=== PATIENT | female | born 1975 | race Caucasian/White ===

== ENCOUNTER 2020-04-03 15:12 | Outpatient (CLI) | payer BC, SELFPAY ==
--- NOTE | ~2020-04-03 | MM_ITS ---
EXAMINATION: MM screening manuel BI w mary HISTORY: Screening TECHNIQUE: Craniocaudal and mediolateral oblique 3-D tomosynthesis images were obtained and synthetic 2-D images were generated. CAD analysis was submitted and interpreted. COMPARISON: No prior mammogram is available for comparison at this institution. BREAST PARENCHYMAL COMPOSITION: The breasts are heterogeneously dense, which may obscure small masses . FINDINGS: There are bilateral breast masses including a 2.6 cm mass in the upper central aspect of th e right breast and a 1.3 cm mass in the upper outer quadrant of the left breast, middle third. There are no suspicious calcifications or architectural distortion. IMPRESSION: 1. Bilateral breast masses. 2. Additional mammographic views and possible breast ultrasound are recommended. BI-RADS Category 0: Incomplete: Needs additional imaging evaluation. Reviewed, dictated and finalized at location A. IMPRESSION: 1. Bilateral breast masses. 2. Additional mammographic views and possible breast ultrasound are recommended . BI-RADS Category 0: Incomplete: Needs additional imaging evaluation.
== END 2020-04-03 15:13 | disposition home or self-care (01) ==
PROVIDERS: PCP Family Medicine Adolescent Medicine; Visit Provider Student in an Organized Health Care Education/Training Program
DX: Z12.31 Encounter for screening mammogram for malignant neoplasm of breast (principal); R92.8 Other abnormal and inconclusive findings on diagnostic imaging of breast
CPT/HCPCS: 77063; 77067

== ENCOUNTER 2020-05-06 13:05 | Outpatient (CLI) | payer BC, SELFPAY ==
--- NOTE | ~2020-05-06 | MMUS_ITS ---
EXAMINATION: MM diagnostic mammo BI, US breast BI limited HISTORY: Bilateral breast masses reported on 04/03/2020 screening mammogram TECHNIQUE: Additional 3-D tomosynthesis images of both breasts were performed and synthetic 2-D image s were generated. CAD analysis was submitted and interpreted. High resolution bilateral upper inner a nd upper outer quadrant ultrasound breast ultrasound was performed. COMPARISON: 04/03/2020 bilateral digital screening mammogram FINDINGS: MAMMOGRAPHIC FINDINGS: There is a 2.2 cm low-density circumscribed mass with halo sign (right craniocaudal Tomosynthesis satya ge 29/53; MLO Tomosynthesis image 36/62) in the upper mid right breast, likely a benign cyst. There is an 11 mm circumscribed low-density mass with halo sign in the upper outer left breast (crani ocaudal Tomosynthesis image 35/49; MLO Tomosynthesis image 31/50). ULTRASOUND: There are scattered bilateral breast cysts, the largest situated on the right at 12-1:00, measuring u p to 26.9 x 12.5 mm. No suspicious mass or shadowing is detected. IMPRESSION: 1. Bilateral breast cysts; no mammographic evidence of malignancy 2. Routine mammographic screening is recommended. BI-RADS Category 2: Benign finding(s). Reviewed, dictated and finalized at location A. IMPRESSION: 1. Bilateral breast cysts; no mammographic evidence of malignancy 2. Routine mammographic screening is recommended. BI-RADS Category 2: Benign finding(s).
== END 2020-05-06 13:06 | disposition home or self-care (01) ==
LOC: ANHIMG 13:06
PROVIDERS: PCP Family Medicine Adolescent Medicine; Visit Provider Obstetrics & Gynecology
DX: R92.8 Other abnormal and inconclusive findings on diagnostic imaging of breast (principal)
CPT/HCPCS: 76642; 77066

== ENCOUNTER 2020-07-29 06:57 | Outpatient (NON) | payer BC, SELFPAY ==
[2020-07-30 14:22] LABS: SARS-CoV-2 RNA PCR Negative
== END 2020-07-29 06:58 ==
LOC: ANHCOVIDDT 07:08
PROVIDERS: Visit Provider Registered Nurse
DX: R51.9 Headache, unspecified (principal); J34.89 Other specified disorders of nose and nasal sinuses; Z20.828 Contact with and (suspected) exposure to other viral communicable diseases
CPT/HCPCS: 87635; C9803; U0003

== ENCOUNTER → 2022-01-14 08:13 | Outpatient (CLI) | payer BC, SELFPAY ==
--- NOTE | ~2022-01-14 | MMUS_ITS ---
EXAMINATION: MM diagnostic manuel BI w mary, US breast BI complete HISTORY: Right breast lump TECHNIQUE: ML, MLO and CC full field and spot 3-D tomosynthesis images of both breasts were performed and synthetic 2-D images were generated. CAD analysis was submitted and interpreted. High resolution complete bilateral breast ultrasound including all 4 quadrants and subareolar areas was performed. COMPARISON: 05/06/2020 bilateral diagnostic mammography and Limited bilateral breast ultrasound 04/03/2020 bilateral screening mammogram BREAST PARENCHYMAL COMPOSITION: The breasts are heterogeneously dense, which may obscure small masses . FINDINGS: MAMMOGRAPHIC FINDINGS: An approximately 2.3 cm mass is noted in the upper mid right breast. This appears relatively stable s ludmila 05/06/2020. Resolution of approximately 1 cm rounded circumscribed opacity in upper outer quadrant of left breast since 05/06/2020. Heterogeneously dense stroma may obscure masses in either breast. ULTRASOUND: There are bilateral circumscribed sonolucent benign-appearing masses, including simple an d septated cysts, the largest a 2.4 x 2 x 1.6 cm cyst at 12:00 3 cm from the nipple, with through transmission and posterior enhancem ent. There is a parallel circumscribed 6 x 6 x 3.7 mm hypoechoic lesion in the left breast at 6:00 5 cm fr om the nipple, without internal vascularity or posterior shadowing. No suspicious mass or shadowing of either breast is evident. IMPRESSION: 1. Benign findings 2. Routine annual mammographic screening is recommended. BI-RADS Category 2: Benign finding(s). Reviewed, dictated and finalized at location A. IMPRESSION: 1. Benign findings 2. Routine annual mammographic screening is recommended. BI-RADS Category 2: Benign finding(s).
== END ==
PROVIDERS: PCP Student in an Organized Health Care Education/Training Program; Visit Provider Student in an Organized Health Care Education/Training Program
DX: R92.8 Other abnormal and inconclusive findings on diagnostic imaging of breast (principal)
CPT/HCPCS: 76641; 77062; 77066; G0279

== ENCOUNTER 2024-06-29 00:19 | Day surgery (SDC) | payer BC, SELFPAY ==
[2024-06-20 15:20] VITALS: BMI 24.2
[2024-06-29] MEDS: LACTATED RINGERS 1,000 ML 150 ML IV CONT (11:15)
--- NOTE | 2024-06-29 11:20 | P.PNAN_ITS ---
Anes - Initial Pre Proc Eval Procedure: Operation Date: 06/29/24 12:30 Proposed Procedures p Colonoscopy - Russell Alcazar MD Date/Time: 06/29/24 11:20 Surgeon: Russell Alcazar MD Pre Op Diagnosis: Family HX malignant neoplasm of digestive organs Patient Data Age: 48 Gender: F Height: 1.57 m Weight: 60.3 kg Allergies Allergy/AdvReac Type Severity Reaction Status Date / Time doxycycline Allergy Intermediate Gastrointestinal Verified 06/29/24 11:07 Upset Sulfa (Sulfonamide Allergy Unknown Unknown Verified 06/29/24 11:07 Antibiotics) Home Medications Medication Instructions Recorded Confirmed Type cholecalciferol (vitamin D3) 25 25 mcg PO DAILY 09/09/22 06/29/24 History mcg (1,000 unit) tablet vitamin B comp and C no.3 15 mg-10 1 cap PO DAILY 09/09/22 06/29/24 History mg-50 mg-5 mg-300 mg capsule triamcinolone acetonide 0.1 % 1 applic topical BID #30 grams 01/12/24 06/29/24 Rx topical cream Patient hx anesthesia problems: none Family hx anesthesia problems: none Results Review: All pre-operative results and documents have been reviewed as part of the pre- operative evaluation. [facility] Past Medical History Medical History (Updated 06/28/24 @ 15:37 by Sidney Garcia DO) Anxiety GERD (gastroesophageal reflux disease) Family History Family History Father Lung cancer Hypertension Heart problem Mother Carcinoma of colon Hypertension Heart problem Cerebrovascular accident Social History Social History Smoking status: Never smoker Alcohol intake: never Alcohol use details: rarely Substance use: never Substance use type: does not use Living arrangements: with family Spiritual care concerns: No Anes - Eval Final PreProcedure Day of Procedure 06/29/24 11:20 Patient weight: normal Heart: regular rate and rhythm Lungs: clear to auscultation and normal air movement Airway: Mallampati scale class II Neurological: alert and oriented Last oral intake: >/= 8 hours ASA classification: II Emergent: no Anesthetic plan: proceed Anesthesia type and monitoring: general GIVS and standard monitoring Results Review: All pre-operative results and documents have been reviewed as part of the pre- operative evaluation. Informed Consent: The patient's anesthetic plan and its attendant risks and benefits were discussed with the patient/family/POA. Questions were solicited and answers provided to the satisfaction of the patient/family/POA.
--- NOTE | 2024-06-29 12:17 | PM.HPGS ---
History of Present Illness History of Present Illness Consent: Risks, benefits, and alternatives have been discussed and questions answered. Patient agrees to proceed with procedure. Chief complaint: Family HX malignant neoplasm of digestive organs Narrative: Dea Arana is a 48 year old female here for first colonoscopy, mother had colon cancer Review of Systems Review of Systems: All systems reviewed & are unremarkable except as noted in HPI and below PMFSH Past Medical History Medical History (Updated 06/28/24 @ 15:37 by Sidney Garcia DO) Anxiety GERD (gastroesophageal reflux disease) Family History Family History Father Lung cancer Hypertension Heart problem Mother Carcinoma of colon Hypertension Heart problem Cerebrovascular accident Social History Social History Smoking status: Never smoker Alcohol intake: never Alcohol use details: rarely Substance use: never Substance use type: does not use Living arrangements: with family Spiritual care concerns: No Meds Home Medications and Allergies Home Medications Medication Instructions Recorded Confirmed Type cholecalciferol (vitamin D3) 25 25 mcg PO DAILY 09/09/22 06/29/24 History mcg (1,000 unit) tablet vitamin B comp and C no.3 15 mg-10 1 cap PO DAILY 09/09/22 06/29/24 History mg-50 mg-5 mg-300 mg capsule triamcinolone acetonide 0.1 % 1 applic topical BID #30 grams 01/12/24 06/29/24 Rx topical cream Allergies Allergy/AdvReac Type Severity Reaction Status Date / Time doxycycline Allergy Intermediate Gastrointestinal Verified 06/29/24 11:07 Upset Sulfa (Sulfonamide Allergy Unknown Unknown Verified 06/29/24 11:07 Antibiotics) Exam Const: General: comfortable and no acute distress HENMT: Face/Nose/Sinus: Normal nares present Eyes: General: appearance normal, both eyes and all related structures Neck: Neck: no JVD Resp: Auscultation: clear to auscultation bilaterally Cardio: Rate: regular rate Rhythm: regular rhythm GI: Inspection: non-distended GI Palp: Yes Soft to palpation Skin: General skin exam: normal color Neuro: General: gait normal Speech: normal speech Extrem: General: normal to inspection Psych: Mental Status: mental status grossly normal Assessment and Plan Assessment and plan (1) Family history of colon cancer in mother: Code(s): Z80.0 - Family history of malignant neoplasm of digestive organs Status: Acute Assessment and Plan: colonoscopy
[2024-06-29 12:31] VITALS: BP 75/29; PULSE 88; RESP 17; O2SAT 100
[2024-06-29 12:31] LABS: BEDSIDEPREGUCG Negative (Negative)
[2024-06-29 12:38] VITALS: BP 87/44; PULSE 82; RESP 19; O2SAT 100
[2024-06-29 12:41] VITALS: BP 85/44; PULSE 81; RESP 20; O2SAT 100
[2024-06-29 12:51] VITALS: BP 98/57; PULSE 79; RESP 24; O2SAT 100
== END 2024-06-29 13:01 | disposition home or self-care (01) ==
PROVIDERS: PCP Family Medicine Adolescent Medicine; Referring Provider Nurse Practitioner Family; Visit Provider Internal Medicine Gastroenterology
PROC: 0DJD8ZZ Inspection of Lower Intestinal Tract, Via Natural or Artificial Opening Endoscopic (ICD-10-PCS; CPT 45378; principal; 2024-06-29 12:30)
DX: Z12.11 Encounter for screening for malignant neoplasm of colon (principal); Z80.0 Family history of malignant neoplasm of digestive organs
CPT/HCPCS: 45378; J2704; J7120